=== PATIENT | female | born 1990 | race Caucasian/White ===

== ENCOUNTER 2016-05-19 22:30 | Emergency (ER) | payer OTHER ==
[2016-05-19 22:45] VITALS: TEMP 97.9; BMI 32.1
[2016-05-20 00:21] LABS: BASOPHIL 0.4 % (0-2.0); EOSINOPHIL 1.4 % (0-4.5); MCH 30.1 pg (25.7-33.7); MCHC 34.6 g/dl (32.0-36.0); MEAN CELL VOLUME 86.9 fl (80-96); MEAN PLT VOLUME 7.7 fl (7.5-11.1); NEUTROPHILS 44.3 % (42.8-82.8); PLATELET COUNT 215 K/MM3 (134-434); RDW 14.3 % (11.6-15.6)
[2016-05-20 00:41] LABS: ALBUMIN 3.8 g/dl (3.4-5.0); ANION GAP 10 (8-16); BILIRUBIN,TOTAL 0.4 mg/dL (0.2-1.0); CALCIUM 8.6 mg/dL (8.5-10.1); CO2 26 mmol/L (21-32); CREATININE 0.5 mg/dL (0.55-1.02); GLUCOSE,RANDOM 96 mg/dL (74-106); SGOT/AST 96 U/L (15-37); SGPT/ALT 178 U/L (12-78); TOT PROT 7.2 g/dl (6.4-8.2)
[2016-05-20 00:44] LABS: ALK PHOS 169 U/L (45-117); TROPONIN I < 0.02 ng/ml (0.00-0.05)
--- NOTE | 2016-05-20 01:20 | PDOC ---
History of Present Illness <Thania Mckeon Tia - Last Filed: 05/20/16 01:19> <Nicole Reilly - Last Filed: 05/20/16 01:51> <Bhavya Chavarria - Last Filed: 05/20/16 03:53> - General Chief Complaint: Chest Pain Stated Complaint: CHEST PAIN Time Seen by Provider: 05/19/16 23:15 - History of Present Illness Initial Comments: 05/20/16 01:24 The patient is a 25 year old female, , with a significant past medical history of thyroiditis, who presents to the emergency department with chest pain since yesterday. She reports the pain as sharp, constant, and states the pain radiates across the front of her chest and to her upper back. She reports the chest pain is exacerbated with deep inspiration. The patient reports on 03/04/16. The patient recently arrived [place] the [place] and is in need of a new PMD because she had stopped her thyroid medication during . She denies shortness of breath, headache and dizziness. She denies fever, chills , nausea, vomit, diarrhea and constipation. She denies dysuria, frequency, urgency and hematuria. Allergies: NKDA Past surgical history: Social history: denies toxic habits (Nicole Reilly) Past History - Past Medical History Asthma: No Cancer: No Cardiac Disorders: No Diabetes: No HTN: No Seizures: No Thyroid Disease: No - Psycho/Social/Smoking Cessation Hx Anxiety: No Suicidal Ideation: No Smoking History: Never smoked Have you smoked in the past 12 months: No Information on smoking cessation initiated: No Hx Alcohol Use: No Drug/Substance Use Hx: No Substance Use Type: None Hx Substance Use Treatment: No <Raymundo Mckeonchuyita Weber - Last Filed: 05/20/16 01:19> <Nicole Reilly - Last Filed: 05/20/16 01:51> <Bhavya Chavarria - Last Filed: 05/20/16 03:53> - Past Medical History Allergies/Adverse Reactions: Allergies Allergy/AdvReac Type Severity Reaction Status Date / Time No Known Allergies Allergy Verified 02/28/16 08:32 Home Medications: Ambulatory Orders Ferrous Sulfate [Feosol] 325 mg PO DAILY 02/28/16 Vitamins (Sjr) - 1 tab PO DAILY 02/28/16 Acetaminophen [Tylenol .Regular Strength -] 650 mg PO Q4H PRN #0 tablet Ibuprofen [Motrin -] 600 mg PO Q4H PRN #30 tablet 03/02/16 Vitamins (Sjr) - 1 tab PO DAILY tablet 03/02/16 Albuterol Sulfate Inhaler - [Ventolin Hfa Inhaler -] 1 - 2 inh PO Q4H PRN #1 inhaler 05/20/16 Review of Systems <Thania Mckeon - Last Filed: 05/20/16 01:19> - Review of Systems Able to Perform ROS?: Yes <Nicole Reilly - Last Filed: 05/20/16 01:51> <Bhavya Chavarria - Last Filed: 05/20/16 03:53> - Review of Systems Comments:: 05/20/16 01:24 CONSTITUTIONAL: Absent: fever, chills, diaphoresis, generalized weakness, malaise, loss of appetite HEENT: Absent: rhinorrhea, nasal congestion, throat pain, throat swelling, difficulty swallowing, mouth swelling, ear pain, eye pain, visual Changes CARDIOVASCULAR: (+) chest pain, Absent: syncope, palpitations, irregular heart rate, lightheadedness, peripheral edema RESPIRATORY: Absent: cough, shortness of breath, dyspnea with exertion, orthopnea, wheezing, stridor, hemoptysis GASTROINTESTINAL: Absent: abdominal pain, abdominal distension, nausea, vomiting, diarrhea, constipation, melena, hematochezia GENITOURINARY: Absent: dysuria, frequency, urgency, hesitancy, hematuria, flank pain, genital pain MUSCULOSKELETAL: (+) upper back pain. Absent: myalgia, arthralgia, joint swelling SKIN: Absent: rash, itching, pallor HEMATOLOGIC/IMMUNOLOGIC: Absent: easy bleeding, easy bruising, lymphadenopathy, frequent infections ENDOCRINE: Absent: unexplained weight gain, unexplained weight loss, heat intolerance, cold intolerance NEUROLOGIC: Absent: headache, focal weakness or paresthesias, dizziness, unsteady gait, seizure, mental status changes, bladder or bowel incontinence PSYCHIATRIC: Absent: anxiety, depression, suicidal or homicidal ideation, hallucinations. ( Nicole Reilly) *Physical Exam <Thania Mckeon - Last Filed: 05/20/16 01:19> <Nicole Reilly - Last Filed: 05/20/16 01:51> <Bhavya Chavarria - Last Filed: 05/20/16 03:53> - Vital Signs Last Vital Signs Temp Pulse Resp BP Pulse Ox 97.9 F 62 14 110/62 98 05/19/16 22:30 05/20/16 02:46 05/20/16 02:46 05/20/16 02:46 05/20/16 02:46 - Physical Exam Comments: 05/20/16 01:25 GENERAL: Well developed, well nourished. Awake and alert. No acute distress. HEENT: Normocephalic, atraumatic. PERRLA, EOMI. No conjunctival pallor. Sclera are non- icteric. Moist mucous membranes. Oropharynx is clear. NECK: Supple. Full ROM. No JVD. Carotid pulses 2+ and symmetric, without bruits. No thyromegaly. No lymphadenopathy. CARDIOVASCULAR: Regular rate and rhythm. No murmurs, rubs, or gallops. Distal pulses are 2+ and symmetric. PULMONARY: No evidence of respiratory distress. Lungs clear to auscultation bilaterally. No wheezing, rales or rhonchi. ABDOMINAL: Soft. Non-tender. Non-distended. No rebound or guarding. No organomegaly. Normoactive bowel sounds. MUSCULOSKELETAL (+) Palpable chest pain. Normal range of motion at all joints. No bony deformities.No CVA tenderness. EXTREMITIES: (+) lymph node ttp on the right axilla. No cyanosis. No clubbing. No edema. No calf tenderness. SKIN: Warm and dry. Normal capillary refill. No rashes. No jaundice. NEUROLOGICAL: Alert, awake, appropriate. Cranial nerves 2-12 intact. Normoreflexic in the upper and lower extremities. Normal speech. Toes are down-going bilaterally. Gait is normal without ataxia. PSYCHIATRIC: Cooperative. Good eye contact. Appropriate mood and affect. (Nicole Reilly) Heart Score/ECG Review <Thania Mckeon - Last Filed: 05/20/16 01:19> <Nicole Reilly - Last Filed: 05/20/16 01:51> <Bhavya Chavarria - Last Filed: 05/20/16 03:53> - ECG Intrepretation Comment:: 05/20/16 01:27 ECG was read by Dr. Mckeon at Impression: (Nicole Reilly) ED Treatment Course - LABORATORY CBC & Chemistry Diagram: 05/20/16 00:04 05/20/16 00:04 <MikeThaniachuyita Weber - Last Filed: 05/20/16 01:19> - LABORATORY CBC & Chemistry Diagram: 05/20/16 00:04 05/20/16 00:04 <Nicole Reilly - Last Filed: 05/20/16 01:51> - LABORATORY CBC & Chemistry Diagram: 05/20/16 00:04 05/20/16 00:04 <Bhavya Chavarria - Last Filed: 05/20/16 03:53> - ADDITIONAL ORDERS Additional order review: Laboratory Results 05/20/16 05/20/16 05/20/16 02:44 01:04 00:04 D-Dimer Sodium 139 Potassium 3.9 Chloride 103 Carbon Dioxide 26 Anion Gap 10 BUN 9 Creatinine 0.5 L D Creat Clearance w eGFR > 60 Random Glucose 96 D Calcium 8.6 Total Bilirubin 0.4 AST 96 H D ALT 178 H D Alkaline Phosphatase 169 H Creatine Kinase 74 81 Troponin I < 0.02 < 0.02 Total Protein 7.2 Albumin 3.8 D Lipase 188 Serum , Qual 05/20/16 05/20/16 00:04 00:04 D-Dimer < 200 Sodium Potassium Chloride Carbon Dioxide Anion Gap BUN Creatinine Creat Clearance w eGFR Random Glucose Calcium Total Bilirubin AST ALT Alkaline Phosphatase Creatine Kinase Troponin I Total Protein Albumin Lipase Serum , Qual Negative 05/20/16 00:04 RBC 4.23 MCV 86.9 MCHC 34.6 RDW 14.3 D MPV 7.7 Neutrophils % 44.3 D Lymphocytes % 45.3 H D Monocytes % 8.6 Eosinophils % 1.4 Basophils % 0.4 - RADIOLOGY Radiograph Interpretation: 05/20/16 01:51 EXAM: Ultrasound abdomen right upper quadrant was read by Darius Garcia MD at 01 :50 EST FINDINGS: Mild 16 cm hepatomegaly with coarse increased echogenicity consistent with mild fatty replacement from mild diffuse hepatocellular disease. The gallbladder appears unremarkable with no evidence for gallbladder wall thickening or pericholecystic fluid. Negative Portillo's sign. The common bile duct measures 6 mm. The visualized portions of the pancreas appear unremarkable. The right kidney is normal appearing with no evidence of hydronephrosis or masses. The aorta is patent. The inferior vena cava is patent. The main portal vein is patent. IMPRESSION: Mild hepatomegaly and steatosis. No cholelithiasis or cholecystitis. No right kidney nephrolithiasis or hydronephrosis. (Nicole Reilly) - Medications Given in the ED: ED Medications Discontinued Medications Generic Name Dose Route Start Last Admin Trade Name Freq PRN Reason Stop Dose Admin Al Hydroxide/Mg Hydroxide 30 ml 05/20/16 02:13 05/20/16 02:44 Mylanta Oral Suspension - PO 05/20/16 02:14 30 ml ONCE ONE Administration Aspirin 81 mg 05/20/16 01:57 05/20/16 02:04 Asa - PO 05/20/16 01:58 81 mg ONCE ONE Administration *DC/Admit/Observation/Transfer <Thania Mckeon - Last Filed: 05/20/16 01:19> <Nicole Reilly - Last Filed: 05/20/16 01:51> - Discharge Dispostion Admit: No <Kiraa Chavarriareen - Last Filed: 05/20/16 03:53> Diagnosis at time of Disposition: Atypical chest pain, Steatosis of liver - Discharge Dispostion Disposition: HOME Condition at time of disposition: Stable - Prescriptions Prescriptions: Albuterol Sulfate Inhaler - [Ventolin Hfa Inhaler -] 1 - 2 inh PO Q4H PRN #1 inhaler PRN Reason: Wheezing - Referrals Referrals: Serenity Garduno MD [Primary Care Provider] - - Patient Instructions Printed Discharge Instructions: DI for Atypical Chest Pain, Nonalcoholic Fatty Liver Disease - Attestations Scribe Attestion: 05/20/16 01:27 Documentation prepared by Nicole Reilly, acting as medical research associate for Thania Mckeon MD. (Nicole Reilly)
[2016-05-20] MEDS ORDERED: ASPIRIN 81 MG CHEWABLE TABLETS PO ONE (01:57)
[2016-05-20] MEDS ORDERED: MAG HYDROX/AL HYDROX/SIMETH 30 ML UNIT-DOSE CUP PO ONE (02:13)
[2016-05-20] MEDS ORDERED: MAG HYDROX/AL HYDROX/SIMETH 30 ML UNIT-DOSE CUP ONE (02:38)
[2016-05-20 02:46] VITALS: BP 110/62; PULSE 62
[2016-05-20 03:31] LABS: TROPONIN I < 0.02 ng/ml (0.00-0.05)
--- NOTE | 2016-05-20 11:17 | EKG ---
Test Reason : Blood Pressure : / mmHG Vent. Rate : 076 BPM Atrial Rate : 076 BPM P-R Int : 174 ms QRS Dur : 088 ms QT Int : 412 ms P-R-T Axes : 050 020 019 degrees QTc Int : 463 ms NORMAL SINUS RHYTHM POSSIBLE LEFT ATRIAL ENLARGEMENT BORDERLINE ECG NO PREVIOUS ECGS AVAILABLE Confirmed by CIRA FIORE MD ([id number]) on 05/20/2016 11:16:47 AM Referred By: Confirmed By:CIRA FIORE MD
== END 2016-05-20 04:04 | disposition home or self-care (01) ==
LOC: JER 22:30 → SUPCPDRO 22:30 → JER 05-20 04:04
DX: R07.89 Other chest pain (principal); K76.0 Fatty (change of) liver, not elsewhere classified
CPT/HCPCS: 36415; 71020-TC; 76705-TC; 80053; 82550; 83690; 84484; 84703; 85025; 85379; 93005; 93010; 99283-25

== ENCOUNTER 2016-08-25 13:37 | Emergency (ER) | payer OTHER ==
[2016-08-25 13:51] VITALS: BP 116/75; PULSE 95; BMI 31.1
--- NOTE | 2016-08-25 14:34 | PDOC ---
History of Present Illness - General Chief Complaint: Pain Stated Complaint: PAIN Time Seen by Provider: 08/25/16 14:06 History Source: Patient Exam Limitations: No Limitations - History of Present Illness Initial Comments: 08/25/16 14:34 26-year-old female presents to the ED with complaints of coccyx pain intimately for the past year associated with a small bump. Patient states she started having pain after she fell on her buttocks but states did not seek treatment or have any imaging done. Patient states over the past year bump has seemed to increase in size but normally resolves with time. Patient denies redness, drainage, difficulty ambulating, difficulty sitting, fever, chills or radiation of pain. Patient denies history of diabetes or immunosuppression Timing/Duration: getting worse, intermittent Severity: mild Associated Symptoms: reports: denies symptoms Past History - Past Medical History Allergies/Adverse Reactions: Allergies Allergy/AdvReac Type Severity Reaction Status Date / Time No Known Allergies Allergy Verified 08/25/16 13:50 Home Medications: Ambulatory Orders NK [No Known Home Medication] 05/20/16 Asthma: No Cancer: No Cardiac Disorders: No Diabetes: No HTN: No Seizures: No Thyroid Disease: No - Reproductive History LMP Normal: Yes Is Patient Now?: No - Psycho/Social/Smoking Cessation Hx Anxiety: No Suicidal Ideation: No Smoking History: Never smoked Have you smoked in the past 12 months: No Information on smoking cessation initiated: No Hx Alcohol Use: No Drug/Substance Use Hx: No Substance Use Type: None Hx Substance Use Treatment: No Patient Lives Alone: No Lives with/in: spouse/SO Review of Systems - Review of Systems Able to Perform ROS?: Yes Constitutional: No: Symptoms Reported ABD/GI: No: Symptoms Reported Musculoskeletal: No: Back Pain Integumentary: Yes: Lumps. No: Erythema Neurological: No: Symptoms reported *Physical Exam - Vital Signs Last Vital Signs Temp Pulse Resp BP Pulse Ox 97.0 F L 95 H 18 116/75 98 08/25/16 13:45 08/25/16 13:45 08/25/16 13:45 08/25/16 13:45 08/25/16 13:45 - Physical Exam General Appearance: Yes: Nourished, Appropriately Dressed. No: Apparent Distress Rectal Exam: positive: normal exam Integumentary: positive: Normal Color, Warm, Other (palpable slightly tender non fluctulant mass that is semi-firm measuring 2 x 2 cm. surrounding skin intact) Neurologic: positive: Motor Strength 5/5 (ambulatory) Medical Decision Making - Medical Decision Making 08/25/16 14:41 Patient with intermittent and coccyx pain with a noted lump that is progressively getting worsening with tenderness and size. Patient on exam had a palpable mass which is likely a pilonidal cyst. No sign of infection presently. Patient will be given instructions on care of a pilonidal cyst and a referral to a surgeon as per her request. *DC/Admit/Observation/Transfer Diagnosis at time of Disposition: Pilonidal cyst - Discharge Dispostion Disposition: HOME Condition at time of disposition: Good - Referrals Referrals: Serenity Garduno MD [Primary Care Provider] - Jason Cheng MD [Staff Physician] - George Coppola MD [Staff Physician] - - Patient Instructions Printed Discharge Instructions: Pilonidal Cyst Additional Instructions: I have given use some recommendations on pilonidal cyst and surgical referral as requested.
[2016-08-25 14:40] VITALS: TEMP 97.9
== END 2016-08-25 14:45 | disposition home or self-care (01) ==
LOC: JER 13:37 → JERFT 13:37
DX: L05.91 Pilonidal cyst without abscess (principal)
CPT/HCPCS: 99281-25

== ENCOUNTER 2018-05-16 13:42 | Emergency (ER) | payer OTHER ==
[2018-05-16 14:25] VITALS: BP 126/71; PULSE 75; TEMP 97.8; BMI 28.3
[2018-05-16] MEDS ORDERED: CYCLOBENZAPRINE HCL 10 MG TABLET (FP) PO ONE (15:36)
[2018-05-16] MEDS ORDERED: ACETAMINOPHEN 500 MG TABLET (FP) PO ONE (15:36)
[2018-05-16] MEDS ORDERED: ACETAMINOPHEN 500 MG TABLET (FP) ONE (15:40)
[2018-05-16] MEDS ORDERED: CYCLOBENZAPRINE HCL 10 MG TABLET (FP) ONE (15:40)
--- NOTE | 2018-05-16 15:55 | PDOC ---
History of Present Illness - General Chief Complaint: Back Pain Stated Complaint: BACK PAIN Time Seen by Provider: 05/16/18 14:48 History Source: Patient Exam Limitations: No Limitations Past History - Travel Traveled outside of the country in the last 30 days: No Close contact w/someone who was outside of country & ill: No - Past Medical History Allergies/Adverse Reactions: Allergies Allergy/AdvReac Type Severity Reaction Status Date / Time No Known Allergies Allergy Verified 05/16/18 14:21 Home Medications: Ambulatory Orders Cyclobenzaprine HCl [Flexeril -] 10 mg PO HS #10 tablet 05/16/18 Ibuprofen 800 mg PO TID #30 tablet 05/16/18 Asthma: No Cancer: No Cardiac Disorders: No COPD: No Diabetes: No HTN: No Seizures: No Thyroid Disease: Yes (HYPOTHYROID) - Suicide/Smoking/Psychosocial Hx Smoking History: Never smoked Have you smoked in the past 12 months: No Hx Alcohol Use: No Drug/Substance Use Hx: No Substance Use Type: None Hx Substance Use Treatment: No Review of Systems - Review of Systems Able to Perform ROS?: Yes Comments:: 05/16/18 15:41 CONSTITUTIONAL: Absent: fever, chills, diaphoresis, generalized weakness, malaise, loss of appetite HEENT: Absent: rhinorrhea, nasal congestion, throat pain, throat swelling, difficulty swallowing, mouth swelling, ear pain, eye pain, visual Changes CARDIOVASCULAR: Absent: chest pain, loss of consciousness, palpitations, irregular heart rate, peripheral edema RESPIRATORY: Absent: cough, shortness of breath, dyspnea with exertion, orthopnea, wheezing, stridor, hemoptysis GASTROINTESTINAL: Absent: abdominal pain, abdominal distension, nausea, vomiting, diarrhea, constipation, melena, hematochezia GENITOURINARY: Absent: dysuria, frequency, urgency, hesitancy, hematuria, flank pain, genital pain MUSCULOSKELETAL: Absent: myalgia, arthralgia, joint swelling SKIN: Absent: rash, itching, pallor HEMATOLOGIC/IMMUNOLOGIC: Absent: easy bleeding, easy bruising, lymphadenopathy, frequent infections ENDOCRINE: Absent: unexplained weight gain, unexplained weight loss, heat intolerance, cold intolerance NEUROLOGIC: Absent: headache, focal weakness or paresthesias, dizziness, unsteady gait, seizure, mental status changes, bladder or bowel incontinence PSYCHIATRIC: Absent: anxiety, depression, suicidal or homicidal ideation, hallucinations. Is the patient limited Guamanian proficient: No *Physical Exam - Vital Signs Last Vital Signs Temp Pulse Resp BP Pulse Ox 97.8 F 75 19 126/71 98 05/16/18 14:22 05/16/18 14:22 05/16/18 14:22 05/16/18 14:22 05/16/18 14:22 - Physical Exam Comments: 05/16/18 15:41 GENERAL: Well developed, well nourished. Awake and alert. No acute distress. HEENT: Normocephalic, atraumatic. PERRLA, EOMI. No conjunctival pallor. Sclera are non- icteric. Moist mucous membranes. Oropharynx is clear. NECK: Supple. Full ROM. No JVD. Carotid pulses 2+ and symmetric, without bruits. No thyromegaly. No lymphadenopathy. CARDIOVASCULAR: Regular rate and rhythm. No murmurs, rubs, or gallops. Distal pulses are 2+ and symmetric. PULMONARY: No evidence of respiratory distress. Lungs clear to auscultation bilaterally. No wheezing, rales or rhonchi. ABDOMINAL: Soft. Non-tender. Non-distended. No rebound or guarding. No organomegaly. Normoactive bowel sounds. MUSCULOSKELETAL Normal range of motion at all joints. No bony deformities or tenderness. No CVA tenderness. EXTREMITIES: No cyanosis. No clubbing. No edema. No calf tenderness. SKIN: Warm and dry. Normal capillary refill. No rashes. No jaundice. NEUROLOGICAL: Alert, awake, appropriate. Cranial nerves 2-12 intact. No deficits to light touch and temperature in face, upper extremities and lower extremities. No motor deficits in the in face, upper extremities and lower extremities. Normoreflexic in the upper and lower extremities. Normal speech. Toes are down- going bilaterally. Gait is normal without ataxia. PSYCHIATRIC: Cooperative. Good eye contact. Appropriate mood and affect. Moderate Sedation - Procedure Monitoring Vital Signs: Procedure Monitoring Vital Signs Temperature 97.8 F 05/16/18 14:22 Pulse Rate 75 05/16/18 14:22 Respiratory Rate 19 05/16/18 14:22 Blood Pressure 126/71 05/16/18 14:22 O2 Sat by Pulse Oximetry (%) 98 05/16/18 14:22 ED Treatment Course - RADIOLOGY Radiology Studies Ordered: Category Date Time Status CERVICAL SPINE CT W/O CONTR [CT] Stat CT Scan 05/16/18 15:[address] WITHOUT CONTRAST [CT] Stat CT Scan 05/16/18 15:38 Ordered *DC/Admit/Observation/Transfer Diagnosis at time of Disposition: Neck pain - Discharge Dispostion Disposition: HOME Condition at time of disposition: Stable Decision to Admit order: No - Referrals Referrals: Bang Alva MD, FAANS [Staff Physician] - - Patient Instructions Printed Discharge Instructions: DI for Neck Pain Additional Instructions: You were evaluated for your neck pain today. Your CAT scans of your head and neck were negative for fracture or bleeds. Please take Motrin 800 mg every 8 hours not to exceed 3000 mg a day. Take the Flexeril at bed time. Do not drink or drive after taking this medication as it'll make you sleepy. Warm compresses to the neck may help her pain. Follow-up with neurosurgery in a week if her symptoms are not resolving. A referral has been provided Return to the ER for worsening pain, lightheadedness, dizziness or if you have any changes in your symptoms. Te evaluaron por tu dolor de tasia jimenez. Las tomografas computarizadas de coreas son y tasia resultaron negativas para fracturas o hemorragias. [place] Motrin 800 mg cada 8 horas, sin exceder los 3000 mg al da. [place] el Flexeril a la hora de dormir. No anu ni maneje despus de gal wilmer medicamento, ya que le guillermo sueo. Las compresas tibias en el tasia pueden ayudar a aliviar coreas dolor. Evita un seguimiento con neurociruga en priscilla semana si rick sntomas no se resuelven. Se cadena proporcionado priscilla referencia Regrese a la ramon de emergencias por empeoramiento del dolor, aturdimiento, mareos o si tiene algn cambio en rick sntomas. Print Language: ESTONIAN - Post Discharge Activity Forms/Work/School Notes: Back to Work
[2018-05-16] MEDS ORDERED: KETOROLAC TROMETHAMINE 60 MG/2 ML VIAL IM ONE (18:10)
[2018-05-16] MEDS ORDERED: LIDOCAINE 5% TOPICAL PATCH TP ONE (18:16)
[2018-05-16] MEDS ORDERED: LIDOCAINE 5% TOPICAL PATCH ONE (18:21)
[2018-05-16] MEDS ORDERED: KETOROLAC TROMETHAMINE 60 MG/2 ML VIAL ONE (18:21)
[2018-05-16] MEDS ORDERED: LIDOCAINE PATCH REMOVAL MC SCH (22:00)
== END 2018-05-16 18:40 | disposition home or self-care (01) ==
LOC: JERFT 13:42
PROC: 3E0233Z Introduction of Anti-inflammatory into Muscle, Percutaneous Approach (ICD-10-PCS; principal; 2018-05-16)
DX: M54.2 Cervicalgia (principal)
CPT/HCPCS: 70450-TC; 72125-TC; 84703; 96372; 99281-25